=== PATIENT | male | born 1960 | race Caucasian/White ===

== ENCOUNTER → 2023-11-23 15:14 | Outpatient (REF) | payer OTHER, SELFPAY | LOC: RAD 15:14 | PROVIDERS: ATTENDING PHYSICIAN Family Medicine | DX: M54.59 Other low back pain (principal) | CPT/HCPCS: 72110 ==

== ENCOUNTER → 2024-10-30 17:35 | Outpatient (REF) | payer OTHER, SELFPAY | LOC: RAD 17:35 | PROVIDERS: ATTENDING PHYSICIAN Family Medicine; FAMILY PHYSICIAN Family Medicine | DX: R10.2 Pelvic and perineal pain (principal) | CPT/HCPCS: 76882 ==

== ENCOUNTER → 2025-02-21 15:03 | Outpatient (REF) | payer OTHER, SELFPAY | LOC: RCS 15:03 | PROVIDERS: ATTENDING PHYSICIAN Student in an Organized Health Care Education/Training Program; FAMILY PHYSICIAN Family Medicine | DX: R55 Syncope and collapse (principal) | CPT/HCPCS: 93017 ==

== ENCOUNTER → 2025-02-27 14:58 | Outpatient (REF) | payer OTHER, SELFPAY | LOC: RCS 14:58 | PROVIDERS: ATTENDING PHYSICIAN Student in an Organized Health Care Education/Training Program; FAMILY PHYSICIAN Family Medicine | DX: R55 Syncope and collapse (principal) | CPT/HCPCS: 93306 ==

== ENCOUNTER → 2025-03-13 14:03 | Outpatient (REF) | payer OTHER, SELFPAY | LOC: RAD 14:03 | PROVIDERS: ATTENDING PHYSICIAN Student in an Organized Health Care Education/Training Program; FAMILY PHYSICIAN Family Medicine | DX: E78.2 Mixed hyperlipidemia (principal); R55 Syncope and collapse | CPT/HCPCS: 75571; 93017; 93350 ==

== ENCOUNTER 2025-04-15 06:45 | Day surgery (SDC) | payer OTHER, SELFPAY ==
[2025-04-03 09:19] LABS: Hematocrit 42.2 % (39.0-52.0); Hemoglobin 14.2 g/dL (13.0-18.0); Mean Corp Hgb Conc. 33.6 g/dL (33.0-37.0); Mean Corpuscular Volume 85.3 fL (80.0-94.0); Platelet Count 175 10^3/uL (130-400); Red Cell Dist. Width 13.1 % (11.5-14.5)
[2025-04-03 09:51] LABS: Blood Urea Nitrogen 27 mg/dl (9-20); Calcium 9.5 mg/dl (8.4-10.2); Carbon Dioxide 28 mmol/L (22-30); Chloride 105 mmol/L (98-107); Glucose 85 mg/dl (70-99); Potassium 5.1 mmol/L (3.5-5.1); Sodium 140 mmol/L (135-145); eGFR > 60.00
[2025-04-03 14:00] VITALS: BMI 26.6
[2025-04-15] VITALS (9 sets, daily range): BP systolic 123–146; BP diastolic 71–91; BMI 26.6
[2025-04-15] MEDS: NORMOSOL-R/PLASMALYTE-A 1000 IV (11:43)
[2025-04-15] MEDS: TYLENOL 1000 MG PO (11:43)
--- NOTE | 2025-04-15 12:30 | HP.FOC2 ---
Focused History & Physical
Chief Complaint
HPI:
Chief Complaint: Left inguinal hernia; possible right
HPI / Indication for Planned Procedure: Patient is a 64-year-old male recently seen in outpatient surgical evaluation secondary to left inguinal discomfort which subsequently was noted to have visible and palpable swelling intermittently. Physical
examination confirmed the presence of a readily apparent and reducible left inguinal hernia, possible right inguinal hernia. After discussions with patient regarding treatment options he wished to pursue operative correction and presents today for
scheduled repair.
Relevant Past Medical History: Other (Hypertension, gout, history of malignant melanoma status post excision)
Relevant Social History: Negative
Relevant Family History: Negative
Relevant Past Surgical History: Positive for (Excision melanoma left chest)
Review of Systems
Review of Pertinent Systems: All Systems Negative
Medication
See Medication form for detailed medications: Yes
Medication List (including Herbals & OTC):
allopurinol 100 mg tablet 100 mg PO BID 02/28/21
Probiotic 1 cap PO Q48H 04/08/25
coQ10 (ubiquinol) 200 mg capsule 200 mg PO DAILY 04/08/25
losartan 50 mg tablet 50 mg PO BID 04/08/25
magnesium 1 tab PO QPM 04/08/25
Medications Reviewed: Yes
Allergies and Reactions
Patient has Allergies: No
Noted Allergies and Reactions:
Allergy/AdvReac Type Severity Reaction Status Date / Time
No Known Allergies Allergy Unverified 04/15/25 11:30
Pertinent Physical Exam
All Other Systems: Negative
Head/Neck: Normal
Lungs: Normal
Heart: Normal
Abdomen: Other (Reducible left inguinal hernia)
Extremities: Normal
Neurological: Normal
Diagnosis / Assessment
64-year-old male presenting for scheduled operative correction symptomatic left inguinal hernia; possible right inguinal hernia
Plan / Procedure
Robotic assisted laparoscopic repair left inguinal hernia with mesh; possible right inguinal hernia pair with mesh
Anesthesia/Sedation to be done by Anesthesia Provider: Yes
--- NOTE | 2025-04-15 12:33 | W.SUR.PREOP ---
Pre-Operative Surgical Note
-
I have examined this patient prior to the performance of the scheduled procedure.
The patient's condition is unchanged from the time of the current History and
Physical and the patient is able to undergo the scheduled procedure.
--- NOTE | 2025-04-15 15:40 | W.IMMPOSTOP ---
Addendum entered and electronically signed by Himanshu Gonzalez MD 04/15/25 16:22:
#[id number]
Original Note:
Surgical Immed Post Op Note
-
Primary Surgeon: Himanshu Gonzalez MD
Assisting Surgeon: Bree MONTALVO
Pre-op Diagnosis: Left inguinal hernia/possible right
Post-op Diagnosis: Bilateral inguinal hernias; indirect
Procedure Performed: Robotic assisted laparoscopic VICTORIANO repair bilateral inguinal hernias with mesh; 3D max large mid weight
Anesthesia Type: GETA +0.25% Marcaine
Specimen / Cultures: None
Estimated Blood Loss: 12 mL
Complications: None immediate
Operative Findings: Left indirect inguinal hernia with associated large lipoma of spermatic cord reduced and excised to facilitate mesh placement. Left direct and femoral spaces normal. 3D max large mid weight mesh repair secured to Margarito's
ligament with 2-0 Vicryl stitch x 2
Right indirect inguinal hernia with associated large lipoma spermatic cord reduced and excised to facilitate mesh placement. Right direct and femoral spaces normal. 3D max large mid weight mesh repair secured to Margarito's ligament with 2-0 Vicryl
stitch x 2
== END 2025-04-15 17:34 | disposition home or self-care (01) ==
LOC: SDS 06:45
PROVIDERS: ATTENDING PHYSICIAN Surgery; FAMILY PHYSICIAN Family Medicine
DX: K40.20 Bilateral inguinal hernia, without obstruction or gangrene, not specified as recurrent (principal)
CPT/HCPCS: 49650; 36415; 80048; 85027; 93005; C1781